=== PATIENT | female | born 1955 | race Caucasian/White ===

== ENCOUNTER → 2018-11-07 | Outpatient (CLI) | payer BC ==
--- NOTE | 2018-11-08 16:26 | MR ---
EXAMINATION TYPE: MR shoulder RT wo con DATE OF EXAM: 11/07/2018 COMPARISON: None HISTORY: Pain right shoulder TECHNIQUE: Multiplanar, multisequence imaging of the right shoulder is performed without contrast. FINDINGS: Rotator Cuff: There is an area where the fluid appears to transverse the posterior supraspinatus tend on, a small perforation is likely present. No tendon or muscle retraction is evident. There is thickening of the distal supraspinatus tendon. Diffuse increased signal is present. Moderate tendinosis is likely present. Acromioclavicular Joint: Hypertrophy with superior directed spurring. Glenohumeral Joint: Glenohumeral junction appears normal. Articular surfaces appear preserved. Labrum: The anterior superior glenoid labrum has increased signal diffusely suspicious for degenerati ve change. Biceps Tendon: The long head of biceps is in normal location within bicipital groove. There is fluid surrounding the long head of biceps tendon. Mild to moderate tendinosis should be considered. Bone marrow signal: No focal abnormal marrow signal is appreciated. Other: There is a moderate joint effusion present. Fluid is within the subacromial bursa and subdelto id bursa. IMPRESSION: Moderate tendinosis of the supraspinatus tendon and mild tendinosis suspected within the long head of the biceps tendon. 2. Moderate joint effusion as well as fluid within the subacromial bursa and subdeltoid bursa. 3. A perforation within the posterior supraspinatus tendon or possibly the infraspinatus tendon junct ion without tendon or muscle retraction. No muscle atrophy is evident.
== END | disposition home or self-care (01) ==
LOC: RADMRIMAIN 10:51
PROVIDERS: ATTEND Orthopaedic Surgery
DX: M25.411 Effusion, right shoulder (principal); M67.813 Other specified disorders of tendon, right shoulder